=== PATIENT | male | born 1950 | race Caucasian/White ===

== ENCOUNTER 2022-04-09 10:19 | Inpatient (IN) | payer SELFPAY ==
[~2022-04-09] VITALS: Ht 177.8 cm; Wt 76.5 kg
[~2022-04-09 10:19] MED LIST: CLOP75 PO; HYDR1TAB94 PO
[2022-04-09 12:36] LABS: Source, Urine Clean Catch
[2022-04-09 12:56] LABS: Hematocrit 40.2 % (37.0-53.0); Hemoglobin 12.9 g/dL (13.5-17.5); Mean Corpuscular HGB Conc 32.1 g/dL (31.5-36.5); Mean Corpuscular Volume 81 fL (80-100); Mean Platelet Volume 10.8 fL (9.1-12.4); Platelet Count 455 K/mm3 (150-400); RDW Coefficient Variation 13.9 % (11.7-14.2); RDW Standard Deviation 41.2 fL (35.1-46.3); Red Blood Cell Count 4.96 M/mm3 (4.30-5.90); White Blood Cell Count 17.85 K/mm3 (4.00-11.30)
[2022-04-09 12:57] LABS: Appearance, Urine Clear (Clear); Bilirubin, Urine Neg (Neg); Blood, Urine Neg (Neg); Color, Urine Yellow (P-Yellow); Glucose Qualitative, Urine Neg (Neg); Ketones, Urine Neg (Neg); Leukocyte Esterase, Urine Neg (Neg); Nitrite, Urine Neg (Neg); Protein, Urine 3+ (Neg); Specific Gravity, Urine 1.015 (1.003-1.022); Urobilinogen, Urine NORM (Normal)
[2022-04-09 13:15] LABS: Albumin, Blood 3.1 g/dL (3.4-5.0); Albumin/Globulin Ratio 0.7 (0.8-1.8); Bilirubin, Total 0.6 mg/dL (0.1-1.0); Bun/Creatinine Ratio 35.9 (12.0-20.0); Calcium, Blood 9.1 mg/dL (8.5-10.1); Creatinine, Blood 2.98 mg/dL (0.60-1.20); Globulin, Blood 4.6 g/dL (2.2-4.0); Potassium, Blood 2.8 mmol/L (3.5-5.5); Total Protein, Blood 7.7 g/dL (6.4-8.2)
[2022-04-09 13:22] LABS: BASOPHILS PERCENT MAN 0 % (0-2); EOSINOPHILS ABSOLUTE MAN 0.17 K/mm3 (0.00-0.68); EOSINOPHILS PERCENT MAN 1 % (0-6); LYMPHOCYTES ABSOLUTE MAN 3.57 K/mm3 (0.84-5.20); LYMPHOCYTES PERCENT MAN 20 % (21-46); METAMYELOCYTE ABSOLUTE MAN 0.17 K/mm3 (0.00-0.00); METAMYELOCYTE PERCENT MAN 1 % (0-0); MONOCYTES ABSOLUTE MAN 1.07 K/mm3 (0.16-1.47); MONOCYTES PERCENT MAN 6 % (4-13); MYELOCYTE ABSOLUTE MAN 0.71 K/mm3 (0.00-0.00); MYELOCYTE PERCENT MAN 4 % (0-0); NEUTROPHILS ABSOLUTE MAN 11.95 K/mm3 (1.96-9.15); PROMYELOCYTE ABSOLUTE MAN 0.17 K/mm3 (0.00-0.00); PROMYELOCYTE PERCENT MAN 1 % (0-0); SEG NEUTROPHILS PERCENT MAN 67 % (41-73); TOTAL CELLS COUNTED 100
[2022-04-09 13:25] LABS: Granular Casts 0-2 /lpf (0)
[2022-04-09 13:26] LABS: Bacteria Rare /hpf; Mucus Light (0-Heavy); Red Blood Cells, Urine Not Seen /hpf (0-2); Squamous Epithelial Cells Not Seen /hpf (Few); White Blood Cells, Urine 0-2 /hpf (0-5)
[2022-04-09 14:10] LABS: Magnesium, Blood 2.3 mg/dL (1.6-2.4); Phosphorus, Blood 3.2 mg/dL (2.5-4.9)
[2022-04-09] MEDS ORDERED: ZOLP10 PO (15:22)
[2022-04-09] MEDS ORDERED: CLON.3 PO (15:24)
[2022-04-09] MEDS ORDERED: ASPI81CH PO (15:25)
[2022-04-09] MEDS ORDERED: LEVSOD112 PO (15:25)
[2022-04-09] MEDS ORDERED: PRAV20 PO (15:25)
[2022-04-09] MEDS ORDERED: AMLOATOR PO (15:26)
[2022-04-09] MEDS ORDERED: LOSA50 PO (15:27)
[2022-04-09] MEDS ORDERED: METO100 PO (15:27)
[2022-04-09] MEDS ORDERED: HYDCHL25 PO (15:27)
[2022-04-09] MEDS ORDERED: HYDR100 PO (15:28)
[2022-04-09] MEDS ORDERED: CLOP75 (15:28)
[2022-04-09 15:44] LABS: International Normalized Ratio 1.12; Prothrombin Time Results 11.7 Sec (9.7-11.5)
[2022-04-09 16:09] LABS: Base Excess Venous -8.1 mmol/L; Bicarbonate Venous 18.3 mmol/L (24.0-30.0)
--- NOTE | 2022-04-09 18:15 | NUR ---
PT TO ROOM FROM ED. PT ALERT AND ORIENTED, FOLLOWS COMMANDS. PT RECEIVING FLUIDS AND ELECTROLYTE REPLACEMENT. STOOL SENT TO LAB TO R/O CDIFF, ON PRECAUTIONS. SON AT BEDSIDE. IV ABX RECEIVED. PT SR, VERIFIED WITH TECHNOLOGY APPLICATIONS ENGINEER UPON ARRIVAL. CALL LIGHT WITHIN REACH.
[2022-04-09 18:21] LABS: Adenovirus F 40/41 Not Detected (NOT DETECT); Astrovirus Not Detected (NOT DETECT); Campylobacter Sp Not Detected (NOT DETECT); Cryptosporidium Not Detected (NOT DETECT); Cyclospora Cayetanensis Not Detected (NOT DETECT); E. Coli O157 Not Detected (NOT DETECT); Entamoeba Histolytica Not Detected (NOT DETECT); Enteroaggregative E. coli-EAEC Not Detected (NOT DETECT); Enteropathogenic E. coli-EPEC Not Detected (NOT DETECT); Enterotoxigenic E. coli-ETEC Not Detected (NOT DETECT); Giardia Lamblia Not Detected (NOT DETECT); Norovirus GI/GII Not Detected (NOT DETECT); Plesiomonas Shigelloides Not Detected (NOT DETECT); Rotavirus A Not Detected (NOT DETECT); Salmonella Sp Not Detected (NOT DETECT); Sapovirus Not Detected (NOT DETECT); Shiga Toxin-prod E. coli-STEC Not Detected (NOT DETECT); Shigella/Enteroin E. coli-EIEC Not Detected (NOT DETECT); Vibrio Cholerae Not Detected (NOT DETECT); Vibrio Sp Not Detected (NOT DETECT); Yersinia Enterocolitica Not Detected (NOT DETECT)
[2022-04-10 05:32] LABS: Hematocrit 29.8 % (37.0-53.0); Hemoglobin 9.7 g/dL (13.5-17.5); Mean Corpuscular HGB 26.4 pg (26.0-34.0); Mean Corpuscular HGB Conc 32.6 g/dL (31.5-36.5); Mean Corpuscular Volume 81 fL (80-100); Mean Platelet Volume 10.7 fL (9.1-12.4); Platelet Count 323 K/mm3 (150-400); RDW Coefficient Variation 14.1 % (11.7-14.2); RDW Standard Deviation 41.7 fL (35.1-46.3); Red Blood Cell Count 3.68 M/mm3 (4.30-5.90); White Blood Cell Count 22.64 K/mm3 (4.00-11.30)
--- NOTE | 2022-04-10 05:58 | NUR ---
Rn summary: Patient is alert and oriented x3. Pt is sometimes slow to answer questions and sometimes just stares at you and doesnt answer. 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 Pt spits into a bottle, pink liquid. Pt will cough and clear. Pt is on RA and chest xray today was clear. Patient is on tele and runs SR/ST 90's-100. Patient on bedalarm because he refuses to call for assist. Pt pulled out IV going to the BR unassisted. Pt is unsteady on feet. When asked, patient states he does not forget to call but doesnt want to. Pt is on clear liquids, no emisis or diarreha this shift. Pt christophe pain. Will continue to monitor.
[2022-04-10 06:12] LABS: Magnesium, Blood 1.6 mg/dL (1.6-2.4)
[2022-04-10 06:21] LABS: Albumin, Blood 2.4 g/dL (3.4-5.0); Albumin/Globulin Ratio 0.7 (0.8-1.8); Bilirubin, Total 0.4 mg/dL (0.1-1.0); Bun/Creatinine Ratio 37.5 (12.0-20.0); Calcium, Blood 7.4 mg/dL (8.5-10.1); Creatinine, Blood 2.48 mg/dL (0.60-1.20); Globulin, Blood 3.3 g/dL (2.2-4.0); Potassium, Blood 3.3 mmol/L (3.5-5.5)
[2022-04-10 06:22] LABS: Total Protein, Blood 5.7 g/dL (6.4-8.2)
[2022-04-10 06:31] LABS: BAND PERCENT MAN 2 % (0-8); BASOPHILS PERCENT MAN 0 % (0-2); EOSINOPHILS PERCENT MAN 0 % (0-6); LYMPHOCYTES ABSOLUTE MAN 2.71 K/mm3 (0.84-5.20); LYMPHOCYTES PERCENT MAN 12 % (21-46); METAMYELOCYTE ABSOLUTE MAN 0.45 K/mm3 (0.00-0.00); METAMYELOCYTE PERCENT MAN 2 % (0-0); MONOCYTES ABSOLUTE MAN 1.58 K/mm3 (0.16-1.47); MONOCYTES PERCENT MAN 7 % (4-13); MYELOCYTE ABSOLUTE MAN 0.22 K/mm3 (0.00-0.00); MYELOCYTE PERCENT MAN 1 % (0-0); NEUTROPHILS ABSOLUTE MAN 17.65 K/mm3 (1.96-9.15); SEG NEUTROPHILS PERCENT MAN 76 % (41-73); TOTAL CELLS COUNTED 100
--- NOTE | 2022-04-10 17:13 | NUR ---
SHIFT SUMMARY NO ACUTE CHANGES DURING SHIFT. PT ALERT AND ORIENTED, FOLLOWS COMMANDS. IV FLUIDS STILL INFUSING CONTINUOUSLY. SPEECH EVAL COMPLETED TODAY, PLACED ON THICKENED LIQUIDS. SON AT BEDSIDE THROUGHOUT DAY. PT REFUSES TO CALL FOR ASSISTANCE TO BATHROOM, BED ALARM ON. CALL LIGHT WITHIN REACH.
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
--- NOTE | 2022-04-11 04:45 | NUR ---
SHIFT SUMMARY PT CONTINUES TO BE IMPULSIVE, EVEN AFTER EXPLAINING THE USE OF THE CALL LIGHT TO HIM. PT TOOK HIS NIGHT MEDICATIONS, BUT REFUSED HIS SLEEPING PILL SEVERAL TIMES. PT FAMILY SPENT TIME WITH HIM LAST NIGHT. TOLD THAT PT MAY POSSIBLY BE DISCHARGED TODAY. CALL LIGHT IS WITHIN REACH, ALTHOUGH PT WILL NOT USE IT APPROPRIATELY.
[2022-04-11 06:18] LABS: Hematocrit 29.2 % (37.0-53.0); Hemoglobin 9.7 g/dL (13.5-17.5); Mean Corpuscular HGB 26.8 pg (26.0-34.0); Mean Corpuscular HGB Conc 33.2 g/dL (31.5-36.5); Mean Corpuscular Volume 81 fL (80-100); Mean Platelet Volume 10.9 fL (9.1-12.4); Platelet Count 308 K/mm3 (150-400); RDW Coefficient Variation 14.3 % (11.7-14.2); RDW Standard Deviation 42.2 fL (35.1-46.3); Red Blood Cell Count 3.62 M/mm3 (4.30-5.90); White Blood Cell Count 13.88 K/mm3 (4.00-11.30)
[2022-04-11 07:01] LABS: Albumin, Blood 2.4 g/dL (3.4-5.0); Albumin/Globulin Ratio 0.7 (0.8-1.8); Bilirubin, Total 0.3 mg/dL (0.1-1.0); Bun/Creatinine Ratio 29.9 (12.0-20.0); Calcium, Blood 7.4 mg/dL (8.5-10.1); Creatinine, Blood 1.77 mg/dL (0.60-1.20); Globulin, Blood 3.3 g/dL (2.2-4.0); Potassium, Blood 2.8 mmol/L (3.5-5.5); Total Protein, Blood 5.7 g/dL (6.4-8.2)
--- NOTE | 2022-04-11 12:23 | NUR ---
Pt resting in bed and reports feeling better. Pt requesting pepsi. Confirmed with Primary RN Winifred and then delivered Pepsi per Pt request. Pt reports no concerns at this time. POLST completed. Spoke with Dr Long and she signs POLST. Delivered copy of POLST to medical records. Original POLST hanging on Pt's whiteboard to go home with upon D/C. Palliative Care will remain available.
--- NOTE | 2022-04-11 18:17 | NUR ---
SHIFT SUMMARY: NO ACUTE EVENTS. DENIED PAIN. NO EVENTS ON TELEMETRY, SR-ST 98-110, UP TO 130'S WITH ACTIVITY. BREATH SOUNDS MOIST, ON ROOM AIR. TOLERATING FULL LIQ DIET. WAS EVALUATED BY PT/OT. GETTING UP TO BR WITH SUPERVISION, CAN BE IMPULSIVE, FORGETS IV POLE. HAD FAMILY AT BEDSIDE ALL DAY. IS HOPING TO GO HOME TOMORROW.
--- NOTE | 2022-04-12 04:32 | NUR ---
SUMMARY: PT A/OX2-3 BUT IS FORGETFULL AT TIMES AND DOESN'T REMEMBER TO CALL FOR ASSIST. HE'S IMPULSIVE OOB TO BATHROOM BUT REQUIRES SBA TO HELP MANAGE IV POLE AND FOR PROTECTION OF LINES. ATTENDS CHANGED PRN FOR URGE INCONTINENCE AND D5 1/2NS W/KCL INFUSES AT 150 ML/HR. PT IS S.TACH AT 100'S BPM ON TELEMTRY BUT HR INCREASES TO 130'S-140'S W/ACTIVITY AND RECOVERS AGAIN AT REST. HE'S SLIGHTLY SOB W/EXERTION BUT SPO2 IS WNL ON RA. 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 DYSPHAGIA PREC'S ARE IN PLACE AND SPEECH TX HAS SEEN PT BUT HE OFTEN NEGLECTS THEIR RECOMMENDATIONS. HE REFUSES CRUSHED MEDS AND IS MEANT TO HAVE NECTAR THICK LIQ'S BUT IS MOSTLY NONCOMPLIANT W/THIS DESPITE AWARENESS OF SWALLOW ISSUES. EDUCATION AND INSTRUCTIONS REITTERATED BUT HE APPEARS TO LACK INTEREST. NO ACUTE CHANGES. VSS/AFEBRILE. POSSIBLE D/C TODAY. WCTM AND REPORT TO DAY RN.
[2022-04-12 05:37] LABS: Hematocrit 25.8 % (37.0-53.0); Hemoglobin 8.7 g/dL (13.5-17.5); Mean Corpuscular HGB 26.8 pg (26.0-34.0); Mean Corpuscular HGB Conc 33.7 g/dL (31.5-36.5); Mean Corpuscular Volume 79 fL (80-100); Mean Platelet Volume 10.6 fL (9.1-12.4); Platelet Count 273 K/mm3 (150-400); RDW Coefficient Variation 14.3 % (11.7-14.2); RDW Standard Deviation 41.7 fL (35.1-46.3); Red Blood Cell Count 3.25 M/mm3 (4.30-5.90); White Blood Cell Count 11.39 K/mm3 (4.00-11.30)
[2022-04-12 06:00] LABS: Albumin, Blood 2.2 g/dL (3.4-5.0); Albumin/Globulin Ratio 0.7 (0.8-1.8); Bilirubin, Total 0.2 mg/dL (0.1-1.0); Bun/Creatinine Ratio 16.3 (12.0-20.0); Calcium, Blood 7.2 mg/dL (8.5-10.1); Creatinine, Blood 1.41 mg/dL (0.60-1.20); Potassium, Blood 2.7 mmol/L (3.5-5.5); Total Protein, Blood 5.2 g/dL (6.4-8.2)
[2022-04-12 06:10] LABS: BAND PERCENT MAN 4 % (0-8); BASOPHILS PERCENT MAN 0 % (0-2); EOSINOPHILS ABSOLUTE MAN 0.34 K/mm3 (0.00-0.68); EOSINOPHILS PERCENT MAN 3 % (0-6); LYMPHOCYTES ABSOLUTE MAN 1.59 K/mm3 (0.84-5.20); LYMPHOCYTES PERCENT MAN 14 % (21-46); METAMYELOCYTE ABSOLUTE MAN 0.11 K/mm3 (0.00-0.00); METAMYELOCYTE PERCENT MAN 1 % (0-0); MONOCYTES ABSOLUTE MAN 1.02 K/mm3 (0.16-1.47); MONOCYTES PERCENT MAN 9 % (4-13); NEUTROPHILS ABSOLUTE MAN 8.31 K/mm3 (1.96-9.15); SEG NEUTROPHILS PERCENT MAN 69 % (41-73); TOTAL CELLS COUNTED 100
[2022-04-12 08:02] LABS: Percent Saturation 10.1 % (20.0-50.0)
[2022-04-12] MEDS ORDERED: CATAPRES0.1 MG PO (14:13)
[2022-04-12] MEDS ORDERED: HYDRA50 PO (14:20)
[2022-04-12] MEDS ORDERED: LEVFLO500 PO (14:20)
--- NOTE | 2022-04-12 15:47 | NUR ---
PATIENT DISCHARGED TO HOME ACCOMPANIED BY HIS SON. IV SALINE LOCK AND TELEMETRY REMOVED WITHOUT INCIDENT. PATIENT AND HIS SON VERBALIZED UNDERSTANDING OF INSTRUCTIONS. THEY ARE WORKING ON GETTING A PCP FOR PT. OFF UNIT VIA W/C AT 1448. NO PERSONAL BELONGINGS LEFT BEHIND IN ROOM.
== END 2022-04-12 14:45 | disposition home or self-care (01) | DRG 871 ==
LOC: ER 10:19 → MEDS 15:14 → ENPENDDIS 04-12 14:01 → MEDS 04-12 14:45
PROVIDERS: Emergency Medicine; Nurse Practitioner Acute Care; Physician Assistant; ADMIT Internal Medicine
DX: A41.9 Sepsis, unspecified organism (principal); I21.A1 Myocardial infarction type 2; A09 Infectious gastroenteritis and colitis, unspecified; N17.9 Acute kidney failure, unspecified; R65.20 Severe sepsis without septic shock; E87.6 Hypokalemia; E03.9 Hypothyroidism, unspecified; Z66 Do not resuscitate; I10 Essential (primary) hypertension; Z86.73 Personal history of transient ischemic attack (TIA), and cerebral infarction without residual deficits; E78.5 Hyperlipidemia, unspecified; Z98.890 Other specified postprocedural states; Z85.819 Personal history of malignant neoplasm of unspecified site of lip, oral cavity, and pharynx; Z79.02 Long term (current) use of antithrombotics/antiplatelets
CPT/HCPCS: 36415; 70450; 71045; 74176; 80053; 81001; 82550; 82728; 82803; 83036; 83540; 83550; 83605; 83690; 83735; 83880; 84100; 84484; 85025; 85027; 85610; 85730; 87040; 87507; 92526; 92610; 93005; 93010; 94760; 96361; 96374; 96375; 97162; 97166; 97530; 99285-25; A9270; C9113; J0696; J1644; J2270; J2405; J2543; J2765; J3480; J7030

== ENCOUNTER → 2022-10-15 | Outpatient (CLI) | payer MEDICARE, OTHER ==
[~2022-10-15] MED LIST changes: +AMLOATOR PO; +ASPI81CH PO; +CATAPRES0.1 MG PO; +CLON.3 PO; +CLOP75; +HYDCHL25 PO; +HYDR100 PO; +HYDRA50 PO; +LEVFLO500 PO; +LEVSOD112 PO; +LOSA50 PO; +METO100 PO; +PRAV20 PO; +ZOLP10 PO
== END ==
LOC: LAB SHORT 07:39 → PLD 07:39
DX: D37.01 Neoplasm of uncertain behavior of lip (principal)
CPT/HCPCS: 88305

== ENCOUNTER → 2023-11-05 | Outpatient (CLI) | payer OTHER ==
[2023-11-05 15:05] LABS: BASOPHILS PERCENT AUTO 1 % (0-2); EOSINOPHILS ABSOLUTE AUTO 0.35 K/mm3 (0.00-0.68); EOSINOPHILS PERCENT AUTO 5 % (0-6); Hematocrit 41.9 % (37.0-53.0); IMMATURE GRAN ABSOLUTE AUTO 0.07 K/mm3 (0.00-0.10); IMMATURE GRAN PERCENT AUTO 1 % (0-1); LYMPHOCYTES ABSOLUTE AUTO 1.85 K/mm3 (0.84-5.20); LYMPHOCYTES PERCENT AUTO 26 % (21-46); MONOCYTES ABSOLUTE AUTO 1.17 K/mm3 (0.16-1.47); MONOCYTES PERCENT AUTO 16 % (4-13); Mean Corpuscular HGB 27.1 pg (26.0-34.0); Mean Corpuscular HGB Conc 33.4 g/dL (31.5-36.5); Mean Corpuscular Volume 81 fL (80-100); Mean Platelet Volume 10.9 fL (9.1-12.4); NEUTROPHILS PERCENT AUTO 51 % (41-73); Platelet Count 349 K/mm3 (150-400); RDW Coefficient Variation 13.2 % (11.7-14.2); RDW Standard Deviation 39.1 fL (35.1-46.3); Red Blood Cell Count 5.16 M/mm3 (4.30-5.90); White Blood Cell Count 7.24 K/mm3 (4.00-11.30)
[2023-11-05 17:47] LABS: Alanine Aminotransfer (ALT/SGP 53 U/L (12-78); Albumin, Blood 3.7 g/dL (3.4-5.0); Albumin/Globulin Ratio 0.7 (0.8-1.8); Alk Phos 126 U/L (50-136); Anion Gap 11 mmol/L (3-11); Aspartate Aminotrans (AST/SGOT 37 U/L (12-37); Bilirubin, Total 0.3 mg/dL (0.1-1.0); Blood Urea Nitrogen 31 mg/dL (8-24); Bun/Creatinine Ratio 19.5 (12.0-20.0); CHOL/HDL RATIO 8.2; CO2, Blood 27 mmol/L (21-32); Calcium, Blood 9.7 mg/dL (8.5-10.1); Chloride, Blood 104 mmol/L (98-108); Cholesterol 319 mg/dL (50-200); Creatinine, Blood 1.59 mg/dL (0.60-1.20); Ferritin, Serum 93 ng/mL (26-388); Glomerular Filtration Rate 46 (60-); Glucose, Blood 108 mg/dL (70-99); HDL Cholesterol 39 mg/dL (>39); LDL/HDL RATIO Unable to Calculate; Low Density Lipoprotein Chol Unable to Calculate mg/dL (0-110); Potassium, Blood 4.1 mmol/L (3.5-5.5); Sodium, Blood 138 mmol/L (136-145); Total Protein, Blood 8.7 g/dL (6.4-8.2); Triglycerides 733 mg/dL (30-160); Very Low Density Lipoprot Chol Unable to Calculate mg/dL (6-32)
[2023-11-05 18:08] LABS: LDL Direct Measurement 163 mg/dL (0-130)
[2023-11-06 17:14] LABS: HIV 1,2 COMBO ANTIGEN/ANTIBODY Negative (Negative)
[2023-11-06 17:39] LABS: HEPATITIS A ANTIBODY, IGM Negative (Negative); HEPATITIS B CORE ANTIBODY, IGM Negative (Negative); HEPATITIS B SURFACE ANTIGEN Negative (Negative); HEPATITIS C AB CIA INTERP Negative (Negative); HEPATITIS C ANTIBODY CIA INDEX 0.03 IV
== END | disposition home or self-care (01) ==
LOC: LAB SHORT 11:56 → LAB 11:56
PROVIDERS: Family Medicine
DX: Z11.4 Encounter for screening for human immunodeficiency virus [HIV] (principal); E03.9 Hypothyroidism, unspecified; R74.8 Abnormal levels of other serum enzymes; I10 Essential (primary) hypertension; I63.9 Cerebral infarction, unspecified; I25.2 Old myocardial infarction; Z87.891 Personal history of nicotine dependence; R94.5 Abnormal results of liver function studies
CPT/HCPCS: 80053; 80061; 80074; 82728; 83721; 84443; 85025; 87389

== ENCOUNTER → 2024-11-25 | Outpatient (CLI) | payer OTHER | LOC: LAB 11:40 → LAB SHORT 11:40 | DX: L28.0 Lichen simplex chronicus (principal); D49.2 Neoplasm of unspecified behavior of bone, soft tissue, and skin | CPT/HCPCS: 88305 ==